=== PATIENT | male | born 1985 | race African-American/Black ===

== ENCOUNTER 2016-05-18 17:13 | Emergency (ER) | payer OTHER ==
[~2016-05-18] VITALS: Ht 170.2 cm; Wt 70.5 kg
[2016-05-18 17:15] VITALS: BP 130/91; PULSE 91; RESP 16; TEMP 97.8; O2SAT 98
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
[2016-05-18] MEDS ORDERED: HYDR-3533 PO ×2 (19:11→19:12)
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
[2016-05-18] MEDS ORDERED: KETOROLAC TROMETHAMINE 60 MG/2 ML (IM) VIAL IM ONE (19:30)
== END 2016-05-18 19:38 | disposition home or self-care (01) ==
LOC: NEPB 17:13
DX: S52.121A Displaced fracture of head of right radius, initial encounter for closed fracture (principal); S40.811A Abrasion of right upper arm, initial encounter; S40.812A Abrasion of left upper arm, initial encounter; M79.631 Pain in right forearm; M79.641 Pain in right hand; M25.562 Pain in left knee; M25.561 Pain in right knee; V28.4XXA Motorcycle driver injured in noncollision transport accident in traffic accident, initial encounter; Y93.I9 Activity, other involving external motion; Y92.410 Unspecified street and highway as the place of occurrence of the external cause
CPT/HCPCS: 73080; 73110; 73130; 96372; 99284; J1885

== ENCOUNTER 2016-05-21 09:22 | Emergency (ER) | payer OTHER ==
[~2016-05-21] VITALS: Ht 170.2 cm; Wt 70.0 kg
[~2016-05-21 09:22] MED LIST: HYDR-3533 PO
[2016-05-21 09:45] VITALS: BP 112/73; PULSE 74; RESP 15; TEMP 98; O2SAT 95
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
[2016-05-21] MEDS ORDERED: ACETAMINOPHEN/HYDROcodone 325 MG/5 MG TAB PO ONE (11:00)
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
[2016-05-21] MEDS ORDERED: IBUP800T23 PO (11:47)
== END 2016-05-21 11:57 | disposition home or self-care (01) ==
LOC: NEPB 09:22
DX: S52.121D Displaced fracture of head of right radius, subsequent encounter for closed fracture with routine healing (principal); V28.4XXD Motorcycle driver injured in noncollision transport accident in traffic accident, subsequent encounter; Y93.19 Activity, other involving water and watercraft; Y92.410 Unspecified street and highway as the place of occurrence of the external cause
CPT/HCPCS: 73030; 73060; 99283